=== PATIENT | male | born 1950 ===

== ENCOUNTER 2017-01-13 12:37 | Day surgery (SDC) | payer MEDICARE ==
[2017-01-13 12:37] VITALS: BMI 30.5
[2017-01-13] MEDS ORDERED: Sodium Chloride 0.9% 1,000 ML IV ONE (13:05)
--- NOTE | 2017-01-13 13:22 | C.PDOC ---
History Of Present Illness 66 year old male presents to the ED after being sent by his urologist, Dr. Parson for admission. Patient was informed that he has a stone in his ureter, which has been causing him pain. History is limited due to language barrier. Time Seen by Provider: 01/13/17 13:02 Chief Complaint (Nursing): Male Genitourinary History Per: Patient History/Exam Limitations: language barrier Onset/Duration Of Symptoms: Days Current Symptoms Are (Timing): Still Present Quality Of Discomfort: "Pain" Additional History Per: Patient Past Medical History Reviewed: Historical Data, Nursing Documentation, Vital Signs Vital Signs: Last Vital Signs Temp 97.7 F 01/13/17 13:50 Pulse 68 01/13/17 13:50 Resp 18 01/13/17 13:50 BP 128/75 01/13/17 13:50 Pulse Ox 98 01/13/17 13:57 - Medical History PMH: Hypercholesterolemia, Hypothyroidism, Kidney Stones, Chronic Kidney Disease Surgical History: No Surg Hx Family History: States: Unknown Family Hx - Social History Hx Alcohol Use: No Hx Substance Use: No Review Of Systems Genitourinary: Positive for: Other (ureteral stone ) Physical Exam - Physical Exam Appears: Non-toxic, No Acute Distress Skin: Normal Color, Warm, Dry Head: Atraumatic, Normacephalic Eye(s): bilateral: Normal Inspection Oral Mucosa: Moist Neck: Supple Chest: Symmetrical, No Deformity Cardiovascular: Rhythm Regular, No Murmur Respiratory: Normal Breath Sounds, No Rales, No Rhonchi, No Wheezing Extremity: Normal ROM, Capillary Refill (less than 2 seconds ) Neurological/Psych: Oriented x3, Normal Speech, Normal Cognition Gait: Steady ED Course And Treatment - Laboratory Results Result Diagrams: 01/13/17 13:35 01/13/17 13:35 Lab Interpretation: No Acute Changes ECG: Interpreted By Me ECG Rhythm: Sinus Rhythm ECG Interpretation: Normal Rate From EC O2 Sat by Pulse Oximetry: 98 (on RA) Pulse Ox Interpretation: Normal - Radiology CXR: Interpreted by Me CXR Interpretation: Yes: No Acute Disease - Other Rad No standard instances X-Ray: Viewed By Me, Read By Radiologist Interpretation: FINDINGS: Examination limited by habitus. LUNGS: No focal consolidation. Suspect calcified right hilar lymph node. Please note that chest x-ray has limited sensitivity for the detection of pulmonary masses. PLEURA: No significant pleural effusion identified. No definite pneumothorax . CARDIOVASCULAR: Heart size appears within normal limits. OSSEOUS STRUCTURES : Degenerative changes of the spine. VISUALIZED UPPER ABDOMEN: Unremarkable. OTHER FINDINGS: None. IMPRESSION: No focal consolidation, significant pleural effusion, or definite pneumothorax identified. Suspect calcified right hilar lymph node. Progress Note: labs, EKG, and CXR ordered and reviewed. IV fluids administered. Reassessment Condition: Improved Disposition Doctor Will See Patient In The: Hospital - Disposition Disposition: HOSPITALIZED Disposition Time: 14:00 Condition: STABLE - POA Present On Arrival: None - Clinical Impression Clinical Impression: Renal colic - PA / INSPECTOR [employer] / Resident Statement MD/DO has reviewed & agrees with the documentation as recorded. - Scribe Statement The provider has reviewed the documentation as recorded by the Scribe (Betty Parikh) All medical record entries made by the Scribe were at my direction and personally dictated by me. I have reviewed the chart and agree that the record accurately reflects my personal performance of the history, physical exam, medical decision making, and the department course for this patient. I have also personally directed, reviewed, and agree with the discharge instructions and disposition.
--- NOTE | 2017-01-13 13:23 | RAD ---
HISTORY: SOB COMPARISON: None available. TECHNIQUE: Chest PA and lateral FINDINGS: Examination limited by habitus. LUNGS: No focal consolidation. Suspect calcified right hilar lymph node. Please note that chest x-ray has limited sensitivity for the detection of pulmonary masses. PLEURA: No significant pleural effusion identified. No definite pneumothorax . CARDIOVASCULAR: Heart size appears within normal limits. OSSEOUS STRUCTURES: Degenerative changes of the spine. VISUALIZED UPPER ABDOMEN: Unremarkable. OTHER FINDINGS: None. IMPRESSION: No focal consolidation, significant pleural effusion, or definite pneumothorax identified. Suspect calcified right hilar lymph node.
[2017-01-13 13:42] LABS: BASO # 0.1 K/uL (0.0-0.2); BASO % 0.8 % (0.0-2.0); EOS # 0.2 K/uL (0.0-0.7); HEMATOCRIT 41.4 % (35.0-51.0); LYMPH # 1.9 K/uL (1.0-4.3); LYMPH % 30.1 % (20.0-40.0); MEAN CELL VOLUME 95.1 fL (80.0-94.0); MEAN CORPUSCULAR HEMOGLOBIN 31.8 pg (27.0-31.0); MEAN CORPUSCULAR HGB CONC 33.5 g/dL (33.0-37.0); MEAN PLATELET VOLUME 10.5 fL (7.2-11.7); MONO # 0.7 K/uL (0.0-0.8); NRBC % 0.1 % (0.0-2.0); WHITE BLOOD COUNT 6.3 K/uL (4.8-10.8)
[2017-01-13 13:46] LABS: CHLORIDE 101 mmol/L (98-107); POTASSIUM 4.2 mmol/L (3.6-5.2); SODIUM 142 mmol/L (132-148)
[2017-01-13 13:48] LABS: GFR AFRICAN-AMERICAN > 60
[2017-01-13 13:49] LABS: ALB/GLOB RATIO 1.1 (1.0-2.1); ALKALINE PHOSPHATASE 101 U/L (38-126); ALT/SGPT 41 U/L (21-72); AST/SGOT 22 U/L (17-59); BILIRUBIN,TOTAL 0.8 mg/dL (0.2-1.3); BLOOD UREA NITROGEN 9 mg/dL (9-20); CALCIUM 9.6 mg/dl (8.6-10.4); CARBON DIOXIDE 26 mmol/L (22-30); GLUCOSE,RANDOM 113 mg/dL (75-110); TOTAL PROTEIN 8.9 g/dL (6.3-8.3)
[2017-01-13 13:52] LABS: RBC URINE 1 /hpf (0-3); URINE BILIRUBIN NEGATIVE (NEGATIVE); URINE BLOOD NEGATIVE (NEGATIVE); URINE COLOR Straw (YELLOW); URINE GLUCOSE (UA) NORMAL (Normal); URINE KETONE NEGATIVE (NEGATIVE); URINE LEUKOCYTE ESTERASE TRACE Leu/uL (Negative); URINE PROTEIN NEGATIVE (NEGATIVE); URINE UROBILINOGEN NORMAL mg/dL (0.2-1.0); WBC URINE 3 /hpf (0-5)
[2017-01-13] MEDS ORDERED: Lidocaine 1% Inj (20ml) ONE ×2 (14:44→14:54)
[2017-01-13] MEDS ORDERED: Lactated Ringer's 1,000 ML IV ONE (14:57)
[2017-01-13] MEDS ORDERED: Lactated Ringer's 1,000 ML IV SCH (15:30)
[2017-01-13 16:05] VITALS: BP 141/76; PULSE 72; RESP 16; TEMP 97.4; O2SAT 100
--- NOTE | 2017-01-14 15:35 | CARD ---
APPROVED REPORT EKG Measurement Heart [id number] <Conclusion> Normal sinus rhythm Normal ECG
--- NOTE | 2017-01-19 07:16 | OP ---
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 POSTOPERATIVE DIAGNOSES: Meatal stenosis and large stone impacted into the urethra. PROCEDURES: Meatotomy, incision of the meatus and removal of large urethral stone. SURGEON: Roxana Parson M.D. TYPE OF ANESTHESIA: Local using Xylocaine. DESCRIPTION OF PROCEDURE: While the patient in supine position, genitalia prepped and draped in sterile fashion. The stone and the meatus prepped and draped well. Xylocaine 1% injected into the meatus going to the ventral area. Incision carried on the meatus down to the stone. The stone removed using holding clamp for the stone and removed and sent to pathology. The meatus itself, the mucosa where the incision was, was mildly bleeding. Suture of 4-0 chromic applied to the meatus and mildly fulgurated. There was not active bleeding. Catheter inserted. It calibrated very well and the urine emptied from the bladder of around 600 mL. The patient tolerated the procedure well and transferred to the recovery in stable condition. Roxana Parson MD
== END 2017-01-13 15:56 | disposition home or self-care (01) ==
LOC: C.ER 12:37 → C.SDS 13:13
PROVIDERS: ATTEND Specialist
DX: N35.9 Urethral stricture, unspecified (principal)
CPT/HCPCS: 52281; 71020; 80053; 81001; 82365; 85025; 87086; 88300; 93005; 96360; 99285; J7040; J7120